=== PATIENT | male | born 1965 | race American Indian/Alaskan Native ===

== ENCOUNTER → 2023-12-19 08:36 | Outpatient (CLI) | payer OTHER, SELFPAY ==
--- NOTE | 2023-12-19 08:40 | DI.CT.S_ITS ---
PROCEDURE: CT SOFT TISSUE NECK W CON INDICATIONS: OCCIPITAL LYMPADENOPATHY TECHNIQUE: After the administration of intravenous contrast, 3.0 mm axial sections acquired from the sella to the aortic arch. Additional oblique axial 3.0 mm sections acquired through the pharynx. 3 mm thick coronal and sagittal reformats were generated. For radiation dose reduction, the following was used: automated exposure control. COMPARISON: None. FINDINGS: Image quality: 05/18/2017 Bilateral lens replacements. Otherwise, the orbits are unremarkable. Macro old Lymph nodes: No enlarged lymph nodes seen throughout the neck. Vessels: Visualized vasculature appears patent. Atherosclerotic vascular calcifications. Neck spaces: Marker placed within the right posterior neck. Deep to the marker is a small subcutaneous nodule measuring approximately 4 mm in short axis, likely a lymph node. The oropharynx, nasopharynx, and pharynx demonstrate no mucosal lesions. The vocal cords, false vocal cords, pyriform sinuses, epiglottis, vallecula, and tongue base all appear normal. Extramucosal spaces appear unremarkable. Glands: The parotid and submandibular glands appear normal. Thyroid gland demonstrates no significant abnormality. Miscellaneous: Visualized brain and orbits appear normal. Lung apices appear clear. Superficial soft tissues appear normal. Bones: No suspicious bony lesions. Visualized sinuses and mastoids appear unremarkable. Degenerative changes of the spine. IMPRESSION: Deep to the marker in the right posterior lateral neck, there is a subcutaneous nodule measuring 4 mm in short axis likely representing a small lymph node. No enlarged lymph nodes or masses are identified within the neck. Dictated by: Emmanuel Olivera M.D. on 12/19/2023 at 19:22 Approved by: Emmanuel Olivera M.D. on 12/19/2023 at 19:49
== END ==
PROVIDERS: Referring Provider Nurse Practitioner Family; Visit Provider Nurse Practitioner Family
DX: R59.0 Localized enlarged lymph nodes (principal)
CPT/HCPCS: 70491; Q9967